=== PATIENT | male | born 1990 ===

== ENCOUNTER 2016-09-06 00:38 | Emergency (ER) | payer SELFPAY ==
[2016-09-06 00:43] VITALS: BP 147/87; PULSE 95; RESP 16; TEMP 97.7; O2SAT 98
--- NOTE | 2016-09-06 03:01 | C.PDOC ---
History Of Present Illness 25 year old male presents to the ED with complaints of decreased hearing in the right ear after attempting to clean the ear and pushing the wax further in. Patient denies nausea, vomiting, and any other complaints at this time. Chief Complaint (Nursing): ENT Problem History Per: Patient History/Exam Limitations: None Onset/Duration Of Symptoms: Hrs Past Medical History Reviewed: Historical Data, Nursing Documentation, Vital Signs Vital Signs: Last Vital Signs Temp 97.7 F 09/06/16 00:40 Pulse 95 H 09/06/16 00:40 Resp 16 09/06/16 00:40 BP 147/87 09/06/16 00:40 Pulse Ox 98 09/06/16 03:07 Family History: States: Unknown Family Hx - Social History Hx Alcohol Use: Yes Hx Substance Use: No - Immunization History Hx Tetanus Toxoid Vaccination: Yes Hx Influenza Vaccination: No Hx Pneumococcal Vaccination: No Review Of Systems Constitutional: Negative for: Fever, Chills ENT: Positive for: Other (decreased hearing due to pushing ear wax further into right ear ) Respiratory: Negative for: Cough, Shortness of Breath Gastrointestinal: Negative for: Nausea, Vomiting, Abdominal Pain, Diarrhea Physical Exam - Physical Exam Appears: Non-toxic, No Acute Distress Skin: Warm, Dry Eye(s): bilateral: PERRL, EOMI Ear(s): Left: Normal, Right: TM Obscured By Wax (impacted cerumen in right ear) ED Course And Treatment O2 Sat by Pulse Oximetry: 98 (room air ) Procedure: Blank - Time Time Performed: 01:10 - Procedure Procedure:: Cerumen disimpaction - Consent obtained: Consent obtained: Verbal - Performed by: Performed by:: Attending physician - Location Location: Ear (right ) - Description Discription of Procedure: 09/06/16 (cerumen disimpaction with warm water and hydrogen peroxide) - Result Result: Successful - Patient Tolerated Procedure Patient Tolerated Procedure:: Well Medical Decision Making Medical Decision Making: Patient felt better following cerumen disimpaction, there were no abrasions or lacerations. Disposition - Disposition Referrals: Vitor Hsieh, [Non-Staff] - Disposition: HOME/ ROUTINE Disposition Time: 01:20 Condition: IMPROVED Additional Instructions: Thank you for letting us take care of you today. Your provider was Dr. Cabral. You were treated for cerumen impaction. The emergency medical care you received today was directed at your acute symptoms. If you were prescribed any medication, please fill it and take as directed. It may take several days for your symptoms to resolve. Return to the Emergency Department if your symptoms worsen, do not improve, or if you have any other problems. Please contact your doctor or call one of the physicians/clinics you have been referred to that are listed on the Patient Visit Information form that is included in your discharge packet. Bring any paperwork you were given at discharge with you along with any medications you are taking to your follow up visit. Our treatment cannot replace ongoing medical care by a primary care provider (PCP) outside of the emergency department. Thank you for allowing the [facility] team to be part of your care today. Follow up with your doctor or return to the emergency room if you have any concerns. Instructions: Cerumen Impaction (ED) - Clinical Impression Clinical Impression: Impacted cerumen - Scribe Statement The provider has reviewed the documentation as recorded by the Kurtibreyna Funk All medical record entries made by the Kurtibreyna were at my direction and personally dictated by me. I have reviewed the chart and agree that the record accurately reflects my personal performance of the history, physical exam, medical decision making, and the department course for this patient. I have also personally directed, reviewed, and agree with the discharge instructions and disposition.
== END 2016-09-06 01:42 | disposition home or self-care (01) ==
LOC: C.ER 00:38
DX: H61.21 Impacted cerumen, right ear (principal)